=== PATIENT | male | born 1975 | race American Indian/Alaskan Native ===

== ENCOUNTER 2016-08-09 14:10 | Emergency (ER) | payer OTHER ==
[2016-08-09 14:37] VITALS: BP 122/80; PULSE 61; RESP 16; TEMP 98.2; O2SAT 97
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
== END 2016-08-09 15:33 | disposition home or self-care (01) ==
LOC: ED 14:10 → MERGE 14:10 → ED 15:33
DX: Z04.1 Encounter for examination and observation following transport accident (principal)
CPT/HCPCS: 96372; 99282; J1885